=== PATIENT | female | born 1940 | race Caucasian/White ===

== ENCOUNTER 2021-10-04 05:13 | Emergency (ER) | payer BC, MEDICARE ==
[2021-10-04] MEDS ORDERED: Ondansetron 4 MG/2 ML SDV IVPUSH ONE (05:26)
[2021-10-04] MEDS ORDERED: Sodium Chloride 0.9% 2.5 ML Syringe FLUSH PRN (05:26)
[2021-10-04] MEDS ORDERED: fentaNYL 50 MCG/ML SDV IVPUSH ONE ×2 (05:26→07:07)
[2021-10-04] MEDS ORDERED: Sodium Chloride 0.9% 10 ML Syringe FLUSH PRN (05:26)
[2021-10-04 06:39] LABS: CARBON DIOXIDE,CO2 28.4 mmol/L (21.0-32.0); POTASSIUM,K 2.8 mmol/L (3.5-5.1)
[2021-10-04] MEDS ORDERED: Potassium Chloride 10% 20 MEQ/15 ML Soln 30 ML UD Cup PO ONE (07:12)
[2021-10-04] MEDS ORDERED: Sodium Chloride 0.45% with KCl 1,000 ML IV SCH (07:15)
[2021-10-04] MEDS ORDERED: Sodium Chloride 0.45% with KCl 1,000 ML IV STA (08:12)
[2021-10-04] MEDS ORDERED: fentaNYL 50 MCG/ML SDV IVPUSH STA (09:52)
== END 2021-10-04 10:10 ==
LOC: MW.ED 05:13
DX: S72.001A Fracture of unspecified part of neck of right femur, initial encounter for closed fracture (principal); E87.6 Hypokalemia; I10 Essential (primary) hypertension; Z91.040 Latex allergy status; Z88.5 Allergy status to narcotic agent; Z88.2 Allergy status to sulfonamides; Z79.899 Other long term (current) drug therapy; Z20.822 Contact with and (suspected) exposure to COVID-19; W18.09XA Striking against other object with subsequent fall, initial encounter
CPT/HCPCS: 36415; 70450; 71045; 72125; 72170; 72192; 73030; 80053; 81003; 84484; 85025; 85610; 85730; 87635; 93005; 96374; 96375; 96376; 99285; A9270; J2405; J3010; J3480; J3490; U0002